=== PATIENT | female | born 1990 | race Two or more races ===

== ENCOUNTER 2022-11-14 02:44 | Emergency (ER) | payer MEDICAID, OTHER ==
[~2022-11-14] VITALS: Ht 147.3 cm; Wt 54.4 kg
[2022-11-14] MEDS ORDERED: IV NS 0.9% 1,000 ML BAG IV ONE (03:00)
[2022-11-14 04:18] VITALS: BP 99/64
== END 2022-11-14 04:22 | disposition home or self-care (01) ==
LOC: ER 02:47
DX: F10.129 Alcohol abuse with intoxication, unspecified (principal); E86.0 Dehydration; Y90.9 Presence of alcohol in blood, level not specified
CPT/HCPCS: 99283; 96360; J7030